=== PATIENT | female | born 1940 | race Caucasian/White ===

== ENCOUNTER → 2017-02-07 20:05 | Outpatient (CLI) | payer MEDICARE | END | disposition home or self-care (01) | LOC: D.LABREF 20:05 | DX: N39.0 Urinary tract infection, site not specified (principal) ==

== ENCOUNTER → 2017-02-20 09:02 | Outpatient (CLI) | payer MEDICARE | END | disposition home or self-care (01) | LOC: D.RAD 09:02 | DX: K63.2 Fistula of intestine (principal) ==

== ENCOUNTER → 2018-01-25 11:28 | Outpatient (CLI) | payer MEDICARE ==
[~2018-01-25] VITALS: Ht 154.9 cm; Wt 54.1 kg
--- NOTE | ~2018-01-25 | HEMODYNAMI ---
PATIENT:JASON OLEARY MEDICAL RECORD: [id number] : 44 LOCATION:[facility] ADMISSION DATE: 01/25/18 Generatedon:01/25/201814:48 Patient name: JASON OLEARY Patient #: [id number] SSN: DO B: 1940 Date of study: 01/25/2018 Page: Of Hemodynamic Procedure Report Patient Data Patient Demographics Procedure consent was obtained First Name: JASON Gender: Female Last Name: MAMTA : 1940 Middle Initial: T Age: 77 year(s) Patient #: [id number] Race: Unknown Additional ID: [id number] Contact details [address]: [address] [place] [address] State: [place] City: [place] Zip code: [address] Past Medical History Allergies Allergen Reaction Date Comments Reported Other allergy 01/25/2018 ERYTHROMYCIN BASE, LEVAQUIN, MACROBID, PCN, TETRACYCLINE Admission Admission Data Admission Date: 01/25/2018 Admission Time: 11:28 Height (in.): 5.1 BSA: 0.25 (m2) Height (cm.): 12.95 BMI: 3216.66 (kg/m2) Weight (lbs.): 119 Weight (kg.): 53.98 Lab Results Lab Result Date: 01/25/2018 Lab Result Time: 0:00 Biochemistry Name Units Result Min Max BUN mg/dl 20 --(----)*- 7 18 Creatinine mg/dl 0.8 --(-*--)-- 0.6 1.3 CBC Name Units Result Min Max Hemoglobin g/dl 10 *-(----)-- 13.5 17.5 Procedure Procedure Types Cath Procedure Diagnostic Procedure [facility] w/Coronaries Right Heart Right Heart Cath Procedure Description Procedure Date Procedure Date: 01/25/2018 Procedure Start Time: 14:24 Procedure End Time: 14:47 Procedure Staff Name Function Gonzalo Lubin MD Performing Physician Kelsy Ruvalcaba RT Monitor Esequiel Melton RT Scrub Madhu Funk RN Nurse Procedure Data Cath Procedure Fluoroscopy Diagnostic fluoroscopy Total fluoroscopy Time: 2.5 time: 2.5 min min Diagnostic fluoroscopy Total fluoroscopy dose: 299 dose: 299 mGy mGy Contrast Material Contrast Material Type Amount (ml) Isovue 300 69 Entry Location Entry Primary Successful Side Size Upsize Upsize Entry Closure Ruby ccessful Closure Location (Fr) 1 (Fr) 2 (Fr) Remarks Device Remarks Radial Right 6 Fr Mechanical artery Short Compression Femoral Right 5 Fr Exoseal artery Estimated blood loss: 5 ml Diagnostic catheters Device Type Used For End Catheter Placement DIAGNOSTIC [place] 110cm 5 Procedure Fr catheter ([id number]) MULTIPACK JL 4.0 5Fr Procedure catheter MULTIPACK 3DRC 5Fr Procedure catheter DIAGNOSTIC AL 1 5Fr Procedure catheter ([id number]) Procedure Complications No complications Procedure Medications Medication Administration Route Dosage Oxygen NC 2 l/min Heparin Flush Bag added to field 2 bags (1000units/500ml NS) 0.9% NaCl I.V. 100 ml/hr Radial Cocktail added to field 1 syringe (Verapomil 2mg/Nitro 400mcg/Heparin 1500units) Fentanyl I.V. 50 mcg Versed I.V. 1 mg Zofran I.V. 4 mg Fentanyl I.V. 25 mcg Versed I.V. 0.5 mg Radial Cocktail I.A. 1 syringe (Verapomil 2mg/Nitro 400mcg/Heparin 1500units) Hemodynamics Rest BSA: 0.25 (m2) HGB: 10 (g/dl) O2 Consumption: Estimated: 22.85 (ml/min) O2 Consu mption indexed: Estimated:91.4 (ml/min/m) Heart Rate: 71 (bpm) Pressure Samples Time Site Value (mmHg) Purpose Heart Use Rate(bpm) 14:26 LV 93/9,18 Snapshot 77 14:26 LV 91/11,16 Snapshot 73 14:26 LV 91/12,19 Snapshot 73 14:36 LV 187/3,12 Snapshot 72 Gradients Valve Time Site Site Mean SEP/DFP Peak To Heart Use 1 2 (mmHg) (sec/min) Peak Rate (mmHg) (bpm) Aortic 14:27 LV AO 67 Aortic 14:36 LV AO 67 Snapshots Pre Cath Intra NCS Post Cath Vital Signs Time Heart Resp SPO2 etCO2 NIBP (mmHg) Rhythm Pain Sedation Rate (ipm) (%) (mmHg) Status Level (bpm) 13:27:33 60 10 90 0.7 Measuring NSR 0 (11) 10(A) , No pain 13:29:35 59 33 89 15.7 Time NSR 0 (11) 10(A) Exceeded , No pain 13:34:08 60 14 96 0 169/79(113) NSR 0 (11) 10(A) , No pain 13:38:55 67 18 94 2.2 152/70(126) NSR 0 (11) 10(A) , No pain 13:44:20 62 18 96 3 154/67(131) NSR 0 (11) 10(A) , No pain 13:49:42 64 18 95 3.7 155/58(122) NSR 0 (11) 10(A) , No pain 13:54:25 63 21 92 2.2 134/59(105) NSR 0 (11) 10(A) , No pain 13:59:05 64 36 92 4.5 138/64(104) NSR 0 (11) 10(A) , No pain 14:03:44 61 20 93 5.2 120/57(97) NSR 0 (11) 10(A) , No pain 14:08:22 60 19 92 4.5 123/52(98) NSR 0 (11) 10(A) , No pain 14:13:01 55 18 92 2.2 125/55(100) NSR 0 (11) 10(A) , No pain 14:17:39 60 18 92 1.5 128/56(106) NSR 0 (11) 10(A) , No pain 14:22:51 75 28 96 20.3 178/84(162) NSR 0 (11) 10(A) , No pain 14:27:32 66 17 95 0.7 109/50(89) NSR 0 (11) 9(A) , No pain 14:32:08 67 23 94 0 119/49(87) NSR 0 (11) 9(A) , No pain 14:36:47 71 18 96 0 129/53(98) NSR 0 (11) 9(A) , No pain 14:40:26 67 19 96 0 125/52(97) NSR 0 (11) 9(A) , No pain 14:45:04 64 19 87 0 130/50(99) NSR 0 (11) 9(A) , No pain Medications Time Medication Route Dose Verified Delivered Reason Notes Effectiveness by by 13:29:10 Oxygen NC 2 l/min Gonzalo Leung Per [facility] Skyler rose MD 13:29:19 Heparin Flush added 2 bags Gonzalo Leung used for Bag to St Skyler Funk RN procedure (1000units/500ml field DEVLIN NS) 13:29:28 0.9% NaCl I.V. 100 Gonzalo Leung Per ml/hr [facility] Skyler rose MD 13:29:41 Radial Cocktail added 1 Gonzalo Madhu used for (Verapomil to syringe [facility] Skyler Funk wire drawer 2mg/Nitro field DEVLIN 400mcg/Heparin 1500units) 13:34:47 Zofran I.V. 4 mg Gonzalo Leung for nausea St Skyler Funk RN, MD 14:22:52 Fentanyl I.V. 50 mcg Gonzalo Leung for sedation St Skyler Funk RN, MD 14:23:00 Versed I.V. 1 mg Gonzalo Leung for sedation St Skyler Funk RN, MD 14:25:58 Fentanyl I.V. 25 mcg Gonzalo Leung for sedation St Skyler Funk RN, MD 14:26:03 Versed I.V. 0.5 mg Gonzalo Leung for sedation St Skyler Funk RN, MD 14:26:17 Radial Cocktail I.A. 1 Gonzalo Gonzalo for (Verapomil syringe [facility] vasodilation 2mg/Nando DEVLIN MD 400mcg/Heparin 1500units) Procedure Log Time Note 13:14:07 Esequiel WEBBER(R) sent for patient. Start room use. 13:14:08 Time tracking: Regular hours (M-F 7:00 - 5:00) 13:14:12 Plan of Care:Hemodynamics will remain stable., Cardiac rhythm will remain stable., Comfort level will be maintained., Respiratory function will remain adequate., Patient/ family verbilizes understanding of procedure., Procedure tolerated without complication., Recovers from procedure without complications.. 13:14:16 Signed procedure consent form obtained from patient. 13:16:23 H&P Date Dictated: 01/23/2018 Within 30 days and on chart., H&P Addendum completed by physician on day of procedure. (MUST COMPLETE FOR ALL OUTPATIENTS). 13:17:36 Patient allergic to Other allergyERYTHROMYCIN BASE, LEVAQUIN, MACROBID, PCN, TETRACYCLINE 13:17:54 Patient Height : 5.1 inches 13:17:59 Patient Weight : 119 lbs 13:26:24 Vital chart was started 13:29:10 Oxygen 2 l/min NC was administered by Madhu Funk RN; Per physician; 13:29:19 Heparin Flush Bag (1000units/500ml NS) 2 bags added to field was administered by Madhu Funk RN; used for procedure; 13:29:28 0.9% NaCl 100 ml/hr I.V. was administered by Madhu Funk RN; Per physician; 13:29:41 Radial Cocktail (Verapomil 2mg/Nitro 400mcg/Heparin 1500units) 1 syringe added to field was administered by Madhu Funk RN; used for procedure; 13:31:53 Patient received from Pre/Post Procedure Room to CCL 1 Alert and oriented. Tansferred to table in Supine position. 13:31:55 Warm blankets applied, and herve hugger turned on for patient comfort. 13:31:55 Correct patient and procedure confirmed by team. 13:31:57 ECG and BP/O2 sat monitors applied to patient. 13:31:59 Baseline sample Acquired. 13:32:09 Full Disclosure recording started 13:32:09 Pre-procedure instructions explained to patient. 13:32:09 Pre-op teaching completed and patient verbalized understanding. 13:32:11 Family in patients room. 13:32:12 Patient NPO since Midnight. 13:32:15 Is patient on blood thinner?No 13:33:10 Vital chart was stopped 13:33:11 Vital chart was started 13:34:47 Zofran 4 mg I.V. was administered by Maduh Funk RN; for nausea; 13:36:32 Patient diabetic? Yes. 13:36:44 If diabetic: On Metformin? Yes 13:36:54 Previous problem with sedation/anesthesia? Yes NAUSEA 13:36:56 Snore? No 13:36:57 Sleep apnea? No 13:36:58 Deviated septum? No 13:36:58 Opens mouth fully? Yes 13:36:59 Sticks out tongue? Yes 13:37:12 Airway obstruction? No ? 13:37:14 Dentures? Yes IN 13:37:18 Modified Nicolás's test Ulnar < 7 seconds 13:37:20 Patient pain scale 0/10 ?. 13:37:42 IV patent on arrival in left hand with 0.9% NaCl at [facility]. 13:38:01 Lab Result : BUN 20 mg/dl 13:38:01 Lab Result : Creatinine 0.8 mg/dl 13:38:01 Lab Result : Hemoglobin 10 g/dl 13:38:04 Lab results completed and on chart. 13:38:07 Right Radial & Right Groin area was prepped with chlora-prep and draped in sterile fashion 13:38:08 Alarms reviewed by R. N. 13:38:08 Sharps counted by scrub and verified by R.N. 13:38:25 Zero performed for pressure channel P1 13:43:22 Baseline sample Acquired. 13:43:27 Rhythm: sinus rhythm 13:43:32 Use device set Radial Dx or PCI 13:43:33 ACIST Syringe (73357) opened to sterile field. 13:43:34 Bag Decanter (2002S) opened to sterile field. 13:43:35 ACIST Hand Control (52152) opened to sterile field. 13:43:35 ACIST Manifold (26418) opened to sterile field. 13:43:36 Tegaderm 4 x 4 (1626W) opened to sterile field. 13:44:03 SHEATH 6Fr Prelude Radial ([id number]) opened to sterile field. 13:44:10 Medline Cath Pack ([id number]) opened to sterile field. 13:44:11 DIAGNOSTIC WIRE .035 260cm J wire (615330) opened to sterile field. 14:21:37 --------ALL STOP TIME OUT------ 14:21:37 Final Timeout: patient, procedure, and site verified with staff and physician. All members of the team are in agreement. 14:21:40 Right Radial & Right Groin site verified by team. 14:21:42 Physical assessment completed. ASA score P 2 - A patient with mild systemic disease as per Gonzalo Lubin MD. 14:21:46 Sedation plan: IV Moderate Sedation Medication:Versed, Fentanyl 14:22:52 Fentanyl 50 mcg I.V. was administered by Madhu Funk RN; for sedation; 14:23:00 Versed 1 mg I.V. was administered by Madhu Funk RN; for sedation; 14:23:50 Procedure started. 14:24:00 Local anesthetic to right radial artery with Lidocaine 2% by Gonzalo Lubin MD.INITIAL ACCESS ONLY 14:24:52 A 6 Fr Short sheath was inserted into the Right Radial artery 14:25:27 A DIAGNOSTIC [place] 110cm 5 Fr catheter ([id number]) was advanced over the wire and used for Procedure. 14:25:58 Fentanyl 25 mcg I.V. was administered by Madhu Funk RN; for sedation; 14:26:03 Versed 0.5 mg I.V. was administered by Madhu Funk RN; for sedation; 14:26:12 LV gram done using SWANSON 14:26:15 Injector settings: Ml/sec: 7, Volume: 15, 14:26:17 Radial Cocktail (Verapomil 2mg/Nitro 400mcg/Heparin 1500units) 1 syringe I.A. was administered by Gonzalo Lubin MD; for vasodilation; 14:27:32 LV hemodynamics recorded. 14:27:59 Catheter removed. 14:28:08 SHEATH 5FR [place] (XON218) opened to sterile field. 14:28:17 Use device set Multipack Set 14:28:21 DIAGNOSTIC Multipack 5Fr catheter set ([id number]) opened to sterile field. 14:29:16 Local anesthetic to right femoral artery with Lidocaine 2% by Gonzalo Lubin MD.ADDITIONAL ACCESS 14:29:28 A 5 Fr sheath was inserted into the Right Femoral artery 14:30:14 A MULTIPACK JL 4.0 5Fr catheter was advanced over the wire and used for Procedure. 14:31:42 LCA angiography performed. 14:31:54 Catheter exchanged over wire. 14:32:00 A MULTIPACK 3DRC 5Fr catheter was advanced over the wire and used for Procedure. 14:32:47 RCA angiography performed. 14:32:49 Catheter exchanged over wire. 14:33:25 A DIAGNOSTIC AL 1 5Fr catheter ([id number]) was advanced over the wire and used for Procedure. 14:33:49 ROADRUNNER .035 145 glide wire (H60022) opened to sterile field. 14:35:18 RAOD RUNNER USED TO CROSS VALVE 14:35:40 Timer 2 started at 2:34 PM, stopped at 2:35 PM, duration 00:00:40 sec. 14:35:47 LV gram done using SWANSON 14:35:49 Injector settings: Ml/sec: 7, Volume: 15, 14:36:31 EF : 60 % 14:36:54 Catheter removed. 14:37:02 EXOSEAL 5Fr (EX500) opened to sterile field. 14:37:35 Sheath removed intact; hemostasis achieved with Exoseal to the Right Femoral artery. 14:37:46 Procedure ended.(Physican Out) 14:37:58 Sheath removed intact; hemostasis achieved with Mechanical Compression to the Right Radial artery. 14:38:47 Fluoroscopy time 02.50 minutes. 14:38:51 Fluoroscopy dose: 299 mGy 14:38:51 Flurop Dose total: 299 14:39:18 Contrast amount:Isovue 300 69ml. 14:39:22 Sharps counted by scrub and verified by R.N. 14:41:58 TR band inflated with 7cc of air. 14:42:02 Post-op/insertion site Right Femoral artery dressed using a 4 x 4 and Tegaderm. 14:42:08 Post right femoral artery:stable, clean and dry 14:42:44 Post procedure rhythm: sinus rhythm 14:42:47 Estimated blood loss: 5 ml 14:42:49 Post procedure instruction explained to patient.Patient verbalizes understanding. 14:42:49 Patient needs reinforcement of post procedure teaching. 14:45:52 Procedure type changed to Cath procedure, Diagnostic procedure, LHC, LHC w/Coronaries, Right Heart, Right Heart Cath 14:47:07 Procedure and supply charges have been captured, reviewed, submitted and are correct. 14:47:09 Procedure Complication : No complications 14:47:11 See physician's report for complete and final results. 14:47:13 Report given to Pre/Post Procedure Room. 14:47:15 Patient transfered to Pre/Post Procedure Room with Bed. 14:47:18 Procedure ended. 14:47:18 Full Disclosure recording stopped 14:47:23 End room use (Document Last) 14:48:07 Vital chart was stopped Device Usage Item Name Manufacture Quantity Catalog Number Hospital Part Current M inimal Lot# / Charge Number Stock Stock Serial# Code ACIST Syringe Acist 1 88473 836951 425228 645017 2 0 (39256) [employer] Bag Decanter Microtek 1 2001S 649422 40342 574509 5 (2001S) Medical Inc. ACIST Hand Acist 1 25744 492145 127976 641450 5 Control (23900) [employer] Inc ACIST Manifold Acist 1 35376 805516 970616 386052 5 (35102) [employer] Inc Tegaderm 4 x 4 3M 1 1626W 096571 412563 349340 5 (1626W) SHEATH 6Fr Merit 1 [id number] 287972 555079 786339 5 Prelude Radial Medical ([id number]) Medline Cath Cardinal 1 [id number] 626933 35743 797661 5 Pack Health ([id number]) DIAGNOSTIC WIRE St Marcial 1 652091 133209 176479 915009 3 0 .035 260cm J wire (696102) DIAGNOSTIC Terumo 1 40-1031 361508 008676 467639 5 [place] 110cm 5 Fr catheter (925595) SHEATH 5FR Terumo 1 FXP868 285337 036810 836486 4 0 [place] (XBE431) DIAGNOSTIC Cardinal 1 QU9064 073991 31351 419620 3 0 Multipack 5Fr Health catheter set (QM4748) MULTIPACK JL Cardinal 1 830066 5 4.0 5Fr Health catheter MULTIPACK 3DRC Cardinal 1 636399 5 5Fr catheter Health DIAGNOSTIC AL 1 Cardinal 1 [id number] 082020 422289 013282 1 5 5Fr catheter Health (151812Q) ROADRUNNER .035 Cook Medical 1 P05226 785248 334625 083404 5 145 glide wire (J21201) EXOSEAL 5Fr Cardinal 1 EX500 628102 011148 664537 1 0 (EX500) Health Signature Audit [place] Stage Time Signature Unsigned Intra-Procedure 01/25/2018 Kelsy Ruvalcaba 2:48:04 PM RT(R) Signatures Monitor : Kelsy Ruvalcaba Signature : RT Date : Time : [facility] [address] [place] [address]
--- NOTE | ~2018-01-25 | OP ---
PATIENT NAME: JASON OLEARY MEDICAL RECORD: [id number] :42 LOCATION:D.[facility] ADMISSION DATE: SURGEON: DANICA BE MD DATE OF OPERATION: 01/25/2018 PROCEDURE: Left and right heart catheterization, right radial vein and right femoral artery catheters. Radial sheath on the venous side, a 5-Cameroonian sheath on the arterial side. FINDINGS: RV pressure was 90/12. Right atrial pressure mean of 12. RV function: This shows normal RV function and no filling defect in the proximal pulmonary artery. LEFT HEART CATHETERIZATION Left heart catheterization, selective coronary angiography, right femoral artery approach. CATHETERS: A 5-Cameroonian sheath, 5/4 left and right [place], 5/4 pig. The procedure was well tolerated. The patient returned to the steve, sheath removed. Adequate hemostasis was obtained. FINDINGS: Left ventriculography in 30-degree SWANSON view: Normal wall motion, normal systolic function. Note, gradient across the aortic valve is 80 mmHg on pullback. CORONARY ANATOMY: LEFT MAIN: Left main is free of disease. LAD: Free to disease in the diagonal system. CIRCUMFLEX: Free of disease in the marginal system. RIGHT CORONARY ARTERY: Dominant artery, gives rise to PDA, free of disease. IMPRESSION: 1. Normal RV function, but with markedly elevated RV pressures. 2. Critical aortic stenosis. 3. Known obstructive coronary artery disease. At this point in time, given the overall status, I am not sure if the patient is a candidate for a valve replacement. This was discussed in detail with family. TRANSINT:[id number] Voice Confirmation ID: [id number] DOCUMENT ID: [id number] DANICA BE MD at 0843 CC: [id number] DICTATION DATE: 01/25/18 1614 SEGMENTAL PAVING SUPERVISOR: 01/25/18 1725 DEP CLI 01/25/18 [id number] [place] [address]
[~2018-01-25 11:28] MED LIST: ALBUTEROL2.5 MG/3 M INH; BUSPAR5 MG PO; CALAN80 MG PO; CYMBALTA20 MG PO; GLUCOPHAGE500 MG PO; HYDROCODON-ACE1 EAC7 PO; METOPROLOL TART50 MG PO; TRAZODONE HCL50 MG PO; ZOFRAN4 MG PO
[2018-01-25 12:30] VITALS: BP 176/54; Ht 154.9 cm; Wt 54.1 kg
[2018-01-25 12:37] LABS: BASOPHILS 0.3 % (0-2); EOSINOPHILS 1.3 % (0-7); HEMATOCRIT 31.3 % (36.0-48.0); IMMATURE GRANULOCYTES 0.1 % (0-5); MCH 27.2 pg (26.0-34.0); MCHC 31.9 g/dL (31.0-37.0); MCV 85.1 fL (80.0-100.0); MEAN PLATELET VOLUME 9.9 fL (7.4-10.4); NEUTROPHILS 73.3 % (40-80); PLATELET COUNT 345 10x3/uL (130-400); RBC 3.68 10x6/uL (4.00-5.40); RDW 14.9 % (11.5-14.5)
[2018-01-25 12:47] LABS: ANION GAP 8.9 mmol/L (8-16); CALCIUM 8.4 mg/dL (8.5-10.1); CARBON DIOXIDE 28.5 mmol/L (21.0-32.0); CREATININE - SERUM 0.8 mg/dL (0.6-1.3); POTASSIUM - SERUM 4.4 mmol/L (3.5-5.1)
== END | disposition home or self-care (01) ==
LOC: D.CATH 11:28
PROVIDERS: Internal Medicine Interventional Cardiology
DX: I25.10 Atherosclerotic heart disease of native coronary artery without angina pectoris (principal); I35.0 Nonrheumatic aortic (valve) stenosis; Z01.812 Encounter for preprocedural laboratory examination

== ENCOUNTER → 2019-03-13 22:49 | Outpatient (CLI) | payer MEDICARE ==
[2018-01-25 12:30] VITALS: BMI 22.5
[2019-03-13 22:57] LABS: APPEARANCE HAZY (CLEAR); BILIRUBIN NEGATIVE (NEGATIVE); COLOR YELLOW (YELLOW); GLUCOSE NEGATIVE (NEGATIVE); KETONE NEGATIVE (NEGATIVE); NITRITE POSITIVE (NEGATIVE); PROTEIN TRACE mg/dL (NEGATIVE); UROBILINOGEN NORMAL (NORMAL)
[2019-03-13 22:58] LABS: BACTERIA MANY /hpf (NEGATIVE); EPITHELIAL CELLS 0-5 /hpf (0-5); RED CELLS - URINE 0-5 /hpf (0-5)
== END | disposition home or self-care (01) ==
LOC: D.LABREF 22:49
PROVIDERS: ATTEND Internal Medicine
DX: N39.0 Urinary tract infection, site not specified (principal)

== ENCOUNTER → 2019-03-25 21:13 | Outpatient (CLI) | payer MEDICARE ==
[2018-01-25 12:30] VITALS: BMI 22.5
[2019-03-25 21:31] LABS: BASOPHILS 0.4 % (0-2); EOSINOPHILS 6.3 % (0-7); HEMOGLOBIN 10.9 g/dL (12-16); IMMATURE GRANULOCYTES 0.2 % (0-5); MCH 29.9 pg (26.0-34.0); MCHC 32.1 g/dL (31.0-37.0); MCV 93.2 fL (80.0-100.0); MEAN PLATELET VOLUME 10.6 fL (7.4-10.4); MONOCYTES 8.1 % (2-11); RBC 3.65 10x6/uL (4.00-5.40); RDW 13.4 % (11.5-14.5); WBC 5.4 10x3/uL (4.8-10.8)
[2019-03-25 21:36] LABS: PLATELET COUNT 275 10x3/uL (130-400)
[2019-03-25 21:52] LABS: ANION GAP 12.5 mmol/L (8-16); BILIRUBIN - TOTAL 0.4 mg/dL (0.2-1.3); CARBON DIOXIDE 30.4 mmol/L (21.0-32.0); CREATININE - SERUM 0.8 mg/dL (0.6-1.3); POTASSIUM - SERUM 3.9 mmol/L (3.5-5.1); PROTEIN - SERUM 7.8 g/dL (6.4-8.2)
== END | disposition home or self-care (01) ==
LOC: D.LABREF 21:13
PROVIDERS: ATTEND Internal Medicine
DX: I25.10 Atherosclerotic heart disease of native coronary artery without angina pectoris (principal); I10 Essential (primary) hypertension; I69.314 Frontal lobe and executive function deficit following cerebral infarction; Z79.02 Long term (current) use of antithrombotics/antiplatelets

== ENCOUNTER → 2019-04-03 18:16 | Outpatient (CLI) | payer MEDICARE ==
[2018-01-25 12:30] VITALS: BMI 22.5
[2019-04-04 12:32] LABS: APPEARANCE CLOUDY (CLEAR); BILIRUBIN NEGATIVE (NEGATIVE); COLOR YELLOW (YELLOW); GLUCOSE NEGATIVE (NEGATIVE); KETONE NEGATIVE (NEGATIVE); NITRITE NEGATIVE (NEGATIVE); PROTEIN NEGATIVE (NEGATIVE); SPECIFIC GRAVITY 1.005 (1.005-1.020); UROBILINOGEN NORMAL (NORMAL)
[2019-04-04 12:33] LABS: BACTERIA MANY /hpf (NEGATIVE); RED CELLS - URINE RARE /hpf (0-5); WHITE CELLS - URINE 0-5 /hpf (NEGATIVE)
== END | disposition home or self-care (01) ==
LOC: D.LABREF 18:16
PROVIDERS: ATTEND Internal Medicine
DX: N39.0 Urinary tract infection, site not specified (principal)

== ENCOUNTER → 2019-05-06 15:03 | Outpatient (CLI) | payer MEDICARE ==
[2018-01-25 12:30] VITALS: BMI 22.5
[2019-05-06 15:54] LABS: APPEARANCE CLEAR (CLEAR); BILIRUBIN NEGATIVE (NEGATIVE); COLOR YELLOW (YELLOW); GLUCOSE NEGATIVE (NEGATIVE); KETONE NEGATIVE (NEGATIVE); NITRITE NEGATIVE (NEGATIVE); PROTEIN NEGATIVE (NEGATIVE); UROBILINOGEN NORMAL (NORMAL)
[2019-05-06 15:56] LABS: EPITHELIAL CELLS 0-5 /hpf (0-5); RED CELLS - URINE 0-5 /hpf (0-5); WHITE CELLS - URINE 25-50 /hpf (NEGATIVE)
[2019-05-06 15:57] LABS: BACTERIA MODERATE /hpf (NEGATIVE)
== END | disposition home or self-care (01) ==
LOC: D.LABREF 15:03
PROVIDERS: ATTEND Internal Medicine
DX: I25.10 Atherosclerotic heart disease of native coronary artery without angina pectoris (principal); I10 Essential (primary) hypertension

== ENCOUNTER → 2019-06-11 15:57 | Outpatient (CLI) | payer MEDICARE ==
[2018-01-25 12:30] VITALS: BMI 22.5
[2019-06-11 17:40] LABS: APPEARANCE CLEAR (CLEAR); BILIRUBIN NEGATIVE (NEGATIVE); COLOR YELLOW (YELLOW); GLUCOSE NEGATIVE (NEGATIVE); KETONE NEGATIVE (NEGATIVE); NITRITE NEGATIVE (NEGATIVE); PROTEIN TRACE mg/dL (NEGATIVE); UROBILINOGEN NORMAL (NORMAL)
[2019-06-11 17:42] LABS: BACTERIA MANY /hpf (NEGATIVE); EPITHELIAL CELLS 0-5 /hpf (0-5); WHITE CELLS - URINE >50 /hpf (NEGATIVE)
== END | disposition home or self-care (01) ==
LOC: D.LABREF 15:57
PROVIDERS: ATTEND Internal Medicine
DX: N39.0 Urinary tract infection, site not specified (principal); I11.0 Hypertensive heart disease with heart failure

== ENCOUNTER → 2019-07-21 16:08 | Outpatient (CLI) | payer MEDICARE ==
[2018-01-25 12:30] VITALS: BMI 22.5
[2019-07-21 16:34] LABS: BILIRUBIN NEGATIVE (NEGATIVE); GLUCOSE NEGATIVE (NEGATIVE); KETONE NEGATIVE (NEGATIVE); NITRITE POSITIVE (NEGATIVE); UROBILINOGEN NORMAL (NORMAL)
[2019-07-21 16:37] LABS: BACTERIA MANY /hpf (NEGATIVE); RED CELLS - URINE OCC /hpf (0-5)
== END | disposition home or self-care (01) ==
LOC: D.LABREF 16:08
PROVIDERS: ATTEND Internal Medicine
DX: N39.0 Urinary tract infection, site not specified (principal)